=== PATIENT | female | born 1930 | race Caucasian/White ===

== ENCOUNTER 2017-04-22 17:14 | Emergency (ER) | payer OTHER, MEDICARE ==
--- NOTE | 2017-04-22 17:21 | EDPHY ---
H & P Time Seen by Provider: 04/22/17 17:20 Source: Patient - Personal History Tetanus Vaccine Date: 2010 - Medical/Surgical History Hx Asthma: No Hx Chronic Respiratory Disease: No Hx Diabetes: No Hx Cardiac Disease: No Hx Renal Disease: No Hx Cirrhosis: No Hx Alcoholism: No Hx HIV/AIDS: No Hx Splenectomy or Spleen Trauma: No Other PMH: Normal pressure hydrocephalus, [employer] shunt, hypertension, anxiety, DDD cervical spine, pericardial effusion - Social History Smoking Status: Former smoker Constitutional: Initial Vital Signs Temperature (C) 36.7 C 04/22/17 17:20 Heart Rate 97 04/22/17 17:20 Respiratory Rate 18 04/22/17 17:20 Blood Pressure 178/101 H 04/22/17 17:20 O2 Sat (%) 96 04/22/17 17:20 O2 Delivery Mode Room Air Allergies/Adverse Reactions: Sulfa (Sulfonamide Antibiotics) Allergy (Unknown, Verified 04/22/17 17:20) Unknown Home Medications: Medication Instructions Recorded Aspirin [Aspirin 81mg (*)] 81 mg PO DAILY 05/25/15 Triamterene/Hydrochlorothiazid 1 each PO DAILY 05/25/15 [Triamterene-Hctz 37.5-25 mg Cp] Carvedilol [Coreg (*)] 6.25 mg PO BIDMEAL 07/19/15 Ramipril [Altace 2.5mg (*)] 2.5 mg PO DAILY 07/19/15 Valacyclovir HCl [Valtrex] 1,000 mg PO TID #21 tab 04/22/17 predniSONE 40 mg PO DAILY #10 tab 04/22/17 Medical Decision Making ED Course/Re-evaluation: CHIEF COMPLAINT: Right facial droop HISTORY OF PRESENT ILLNESS: The patient is an 86-year-old female presenting with right sided facial droop that she noticed this morning when she woke up. Patient denies any difficulty with word finding. No extremity paraesthesia. Patient had dental work performed recently to her right side. She denies dental pain. REVIEW OF SYSTEMS: A 10 point review of systems was performed and is negative with the exception of the elements mentioned in the history of present illness. PHYSICAL EXAM: HR, BP, O2 Sat, RR. Temp noted General Appearance: Alert, well hydrated, appropriate, and non-toxic appearing. Head: Atraumatic without scalp tenderness or obvious injury Eyes: Pupils equal, round, reactive to light and accommodation, EOMI, no trauma , no injection. Ears: Clear bilaterally, no perforation, normal landmarks Nose: Atraumatic, no rhinorrhea, clear. Throat: There is no erythema or exudates, no lesions, normal tonsils, mucus membranes moist. Neck: Supple, 2+ carotid upstroke, nontender, no lymphadenopathy. Respiratory: No retractions, no distress, no wheezes, and no accessory muscle use. Lungs are clear to auscultation bilaterally. Cardiovascular: Regular rate and rhythm, no murmurs, rubs, or gallops. Bilateral carotid, radial, dorsalis pedis, and posterior tibial pulses intact. Good capillary refill all extremities. Gastrointestinal: Abdomen is soft, nontender, non-distended, no masses, no rebound, no guarding, no peritoneal signs. Musculoskeletal: Normal active ROM of all extremities, atraumatic. Neurological: Alert, appropriate, and interactive. Nasal labia fold is not functioning right side. Lid laxity of the right side. Skin: No rashes, good turgor, no nodules on palpation. 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 DIAGNOSTICS/PROCEDURES/CRITICAL CARE TIME: DIFFERENTIAL DIAGNOSIS: The differential diagnosis for the patient's neurologic defecits included but was not limited to bells palsy, peripheral causes, central causes including CVA, TIA, electrolyte abnormalities and dehydration, cardiogenic causes, atypical causes like migraine syndrome. MEDICAL DECISION MAKING: Patient presents with right facial droop that started this morning. On exam patient's right nasal labia is not function. She has lid laxity of the right side. Symptoms consistent with [place] phenomena of right orbit. Plan to check brain MRI to rule out bleed. I ordered 1000mg Valtrex. The patient has a [employer] Strata adjustable pressure valve for normal pressure hydrocephalus. We are unable to change the valve pressure and therefore patient is unable to have MRI. I have cancelled the MRI. Patient has classic bells phenomena. Plan to discharge home with Valtrex and Prednisone. - Data Points Medications Given: Discontinued Medications Prednisone (Prednisone) 40 mg PO EDNOW ONE Stop: 04/22/17 17:36 Last Admin: 04/22/17 17:58 Dose: 40 mg Valacyclovir HCl (Valtrex) 1,000 mg PO EDNOW ONE Stop: 04/22/17 17:34 Last Admin: 04/22/17 17:58 Dose: 1,000 mg Departure - Departure Disposition: Home, Routine, Self-Care Clinical Impression: Benoit's palsy Condition: Good Instructions: Benoit Palsy (ED) Additional Instructions: Followup with your neurologist for a recheck of your symptoms. Return to the Emergency Department with new or worsening symptoms. Referrals: Elsa Lay MD [Medical Doctor] - As per Instructions Prescriptions: predniSONE 40 mg PO DAILY #10 tab Valacyclovir HCl [Valtrex] 1,000 mg PO TID #21 tab Report Scribed for: Estiven Ravi Report Scribed by: Mara Deutsch Date of Report: 04/22/17 Time of Report: 17:31
[2017-04-22 17:22] VITALS: TEMP 98.1
[2017-04-22] MEDS ORDERED: valACYclovir 500 MG TAB PO ONE (17:33)
[2017-04-22] MEDS ORDERED: predniSONE 20 MG TAB PO ONE (17:35)
[2017-04-22 18:37] VITALS: BP 162/94; PULSE 84; RESP 18; O2SAT 95
== END 2017-04-22 18:55 | disposition home or self-care (01) ==
DX: G51.0 Bell's palsy (principal); I10 Essential (primary) hypertension; Z79.82 Long term (current) use of aspirin; Z87.891 Personal history of nicotine dependence